=== PATIENT | male | born 1975 | race Caucasian/White ===

== ENCOUNTER 2019-07-15 02:58 | Emergency (ER) | payer BC ==
[2019-07-15 03:03] VITALS: BP 130/97
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
--- NOTE | 2019-07-15 13:39 | PN ---
Progress Note - Progress Note Date of Service: 07/14/19 Note: Final radiology read: IMPRESSION: FOURTH METACARPAL FRACTURE WITH QUESTIONABLE DISLOCATION OF THE FOURTH CMC JOINT. R2 Preliminary Imaging Read R2 Pt. treated appropriately in the ED. He is to call ortho. on Wednesday for an apt. No change in treatment needed at this time.
== END 2019-07-15 04:15 | disposition home or self-care (01) ==
LOC: ED 02:58
DX: S62.314A Displaced fracture of base of fourth metacarpal bone, right hand, initial encounter for closed fracture (principal); W22.8XXA Striking against or struck by other objects, initial encounter; Y92.9 Unspecified place or not applicable; K21.9 Gastro-esophageal reflux disease without esophagitis; Z90.49 Acquired absence of other specified parts of digestive tract; Z79.899 Other long term (current) drug therapy
CPT/HCPCS: 99282

== ENCOUNTER → 2019-07-24 | Day surgery (SDC) | payer BC ==
[~2019-07-24] MED LIST: Acetaminophen IV 1GM/100ML * 100 ML ONE; Bupivacaine 0.5%* 50 ML MDV VIAL ONE; Famotidine IV* 10 MG/ML 2 ML (20 mg) ONE; Lidocaine 2% PF * 5 ML VIAL ONE; Midazolam* 1 MG/ML 2 ML VIAL (2 MG) ONE; Naloxone* 0.4 MG/ML 1 ML VIAL IV PRN; Ondansetron INJ* 2 MG/ML VIAL IV PRN; Ondansetron INJ* 2 MG/ML VIAL ONE; Propofol* 10 MG/ML 20 ML BTL ONE; Sodium Citrate/Citric Acid* 15 ML UDC ONE; Sodium Citrate/Citric Acid* 15 ML UDC PO ONE; ceFAZolin 1 GM ADVAN(*) 1 GM ADDV.VIAL IVPB ONE; ceFAZolin 2 GM in NS PREMIX(*) 2 GM/100 ML BAG IVPB ONE; fentaNYL* 50 MCG/ML 2 ML VIAL (100 MCG VIAL) ONE; traMADol TAB* 50 MG ONE
[2019-07-24] MEDS: fentaNYL* 50 MCG/ML 2 ML VIAL (100 MCG VIAL) IV PRN ×2 (20:14→20:40)
[2019-07-24 21:45] VITALS: BP 111/63
--- NOTE | 2019-07-27 21:04 | OP ---
DATE OF OPERATION: 07/24/19 [facility] DATE OF : 79 SURGEON: Mau Godfrey MD ARCHITECTURAL MODELER: TIFFANIE Britt. An administrative office assistant was needed for the entirety of the procedure to aid in positioning of the arm and retraction. ANESTHESIOLOGIST: Dr. Thopmson. ANESTHESIA: General. PRE-OP DIAGNOSES: 1. Right fourth metacarpal base carpometacarpal fracture dislocation. 2. Right fifth carpometacarpal dislocation. POST-OP DIAGNOSES: 1. Right fourth metacarpal base carpometacarpal fracture dislocation. 2. Right fifth carpometacarpal dislocation. OPERATIVE PROCEDURE: 1. Open reduction and internal fixation of the right fourth carpometacarpal joint fracture dislocation. 2. Open reduction of the right fifth carpometacarpal joint dislocation. INDICATIONS: Mr. Guadalupe has the aforementioned injury. We talked about risks and benefits. He wanted to proceed. ESTIMATED BLOOD LOSS: 2 mL. COMPLICATIONS: None. FINDINGS: See above and below. DESCRIPTION OF PROCEDURE: Mr. Guadalupe was seen in the preoperative holding area. The correct site, side, and procedure were identified. We came back to the operating room where the arm was prepped and draped in the usual fashion and a time- out was performed. The arm was exsanguinated with the Esmarch and the tourniquet was inflated. I attempted a closed reduction. I could not get the fourth metacarpal base to reduce. There was a gap between the edges of the bone that was substantial and I thought it would put him at risk for nonunion or posttraumatic arthrosis. I therefore decided to open. I made a longitudinal incision centered right over the fourth and fifth carpometacarpal joints of about 4 or so centimeters. Dissection was carried down. The ulnar sensory nerve was identified and protected. The interval between the tendons was utilized. The capsule over the fourth and fifth CMC joints was opened. The fracture hematoma was irrigated out and evacuated. The subperiosteal flaps were raised off the hamate and off the bases of the metacarpals. The dorsal carpometacarpal ligaments were preserved. There was interposed band of soft tissue on the base of the fourth metacarpal. I went ahead and incised that and released that and then I debrided out the remainder of the soft tissue. After that, I could reduce the fourth metacarpal back to its anatomic footprint. Once I had it reduced, I used multiple 0.062 K-wires to pin it in place. The fifth carpometacarpal joint reduced with the fourth. I used multiple K-wires to secure that, some to the hamate,and one over into the base of the third metacarpal. At this point, the fixation was very stable, everything was looking very nice. The wound was irrigated out. The capsule in the subperiosteal layer was closed with a 5-0 Prolene suture. The skin was closed with 4-0 Monocryl and Steri-Strips. 0.25% Marcaine was infiltrated all about the operative area. The pins had been clipped below the skin as he works a lot with his hands and they get dirty frequently. He was not sure if he would be able to keep them clean, so we decided to bury the pins. An ulnar gutter splint was applied grabbing the middle through small fingers and clinically the alignment looked very nice of the fingers as well. The reduction and fixation had been confirmed on mini C-arm fluoroscopy. After he was splinted, he was taken to the recovery room in stable condition. [id number]/CPS #: [id number] BRITTANY
== END | disposition home or self-care (01) ==
LOC: OR 14:59
PROVIDERS: ATTEND Orthopaedic Surgery Hand Surgery
DX: S62.314A Displaced fracture of base of fourth metacarpal bone, right hand, initial encounter for closed fracture (principal); S63.054A Dislocation of other carpometacarpal joint of right hand, initial encounter; W22.8XXA Striking against or struck by other objects, initial encounter; Y92.9 Unspecified place or not applicable; E78.5 Hyperlipidemia, unspecified; K21.9 Gastro-esophageal reflux disease without esophagitis
CPT/HCPCS: A9270-GY; C1776; J0690; J2250; J2405; J2704; J3010; J3490